=== PATIENT | female | born 1970 | race Caucasian/White ===

== ENCOUNTER 2023-07-15 14:00 | Emergency (ER) | payer OTHER ==
[~2023-07-15] VITALS: Ht 165.1 cm; Wt 65.8 kg
[2023-07-15 14:29] VITALS: BP 129/71; PULSE 56; RESP 19; TEMP 97.9; O2SAT 100
[2023-07-15] MEDS: KETOROLAC 30 MG/ML VIAL IM ONE (15:13)
[2023-07-15] MEDS ORDERED: LID5T TP (16:11)
[2023-07-15] MEDS ORDERED: CYCL-711 PO (16:11)
[2023-07-15] MEDS ORDERED: NAPR-54 PO (16:11)
== END 2023-07-15 16:31 | disposition home or self-care (01) ==
LOC: MED 14:00
DX: M25.571 Pain in right ankle and joints of right foot (principal); R07.81 Pleurodynia; Z79.899 Other long term (current) drug therapy; V49.88XA Car occupant (driver) (passenger) injured in other specified transport accidents, initial encounter; Y93.89 Activity, other specified; Y92.89 Other specified places as the place of occurrence of the external cause; Y99.8 Other external cause status
CPT/HCPCS: 71101; 73590; 96372; 99284; J1885